=== PATIENT | female | born 1965 | race African-American/Black ===

== ENCOUNTER 2024-05-21 13:35 | Emergency (ER) | payer MEDICAID, OTHER ==
[~2024-05-21] VITALS: Ht 167.6 cm; Wt 73.0 kg
[2024-05-21 13:38] VITALS: O2SAT 98
[2024-05-21 14:17] LABS: BASOPHILS % 3.4 % (0.0-2.0); DIFFERENTIAL COMMENT 0; EOSINOPHILS % 4.6 % (0.0-5.0); HEMATOCRIT. 30.3 % (36.0-48.0); LYMPHOCYTES % 35.7 % (20.0-50.0); MEAN CORPUSCULAR HEMOGLOBIN 33.4 pg (28.0-32.0); MEAN CORPUSCULAR VOLUME 101.2 fL (81.0-99.0); MEAN PLATELET VOLUME 8.2 fl (7.4-10.4); MONOCYTES % 9.6 % (2.0-8.0); NEUTROPHILS % 46.7 % (40.0-76.0); PLATELET 287 x1000/uL (130-400); RED BLOOD CELL COUNT 2.99 mill/uL (4.2-5.4); RED CELL DISTRIBUTION WIDTH 15.3 % (11.6-14.6); WHITE BLOOD COUNT 4.3 x1000/uL (4.5-11.0)
[2024-05-21 14:29] LABS: CARBON DIOXIDE 24 mEq/L (21-32); CHLORIDE 107 mEq/L (98-107); POTASSIUM 3.3 mEq/L (3.5-5.1); SODIUM 145 mEq/L (136-145)
[2024-05-21 14:30] LABS: CALCIUM 10.1 mg/dL (8.7-10.4); D-DIMER 1.12 mg/L FEU (<0.50); PARTIAL THROMBOPLASTIN TIME 25.4 sec (23.4-31.0); PROTHROMBIN TIME 10.4 sec (9.6-11.0)
[2024-05-21 14:35] LABS: CREATININE 0.9 mg/dL (0.6-1.0); GLUCOSE 60 mg/dL (70-105); TROPONIN I HIGH SENSITIVITY 8 ng/L (3.0-34); UREA NITROGEN BLOOD 13 mg/dL (9-23)
[2024-05-21] MEDS: POTASSIUM CHLORIDE 20MEQ/PACKET PO ONE (15:59)
[2024-05-21 16:31] LABS: TROPONIN I HIGH SENSITIVITY 8 ng/L (3.0-34)
[2024-05-21] MEDS ORDERED: AMOX1TAB16 MT (16:47)
[2024-05-21 17:17] VITALS: BP 153/110; PULSE 93; RESP 14; TEMP 36.8; O2SAT 100
[2024-05-22] MEDS ORDERED: IOHEXOL-350 100 ML BOTTLE ONE (01:21)
== END 2024-05-21 17:30 | disposition home or self-care (01) ==
LOC: ER 13:35
DX: R07.89 Other chest pain (principal); I83.92 Asymptomatic varicose veins of left lower extremity; K04.7 Periapical abscess without sinus; F41.9 Anxiety disorder, unspecified; J45.909 Unspecified asthma, uncomplicated; Z79.899 Other long term (current) drug therapy
CPT/HCPCS: 99285; 71275; 93971; 71045; 80048; 83880; 85025; 85379; 85610; 85730; 84484; 36415; 93005; Q9967

== ENCOUNTER 2024-07-15 17:19 | Emergency (ER) | payer OTHER ==
[~2024-07-15] VITALS: Ht 162.6 cm; Wt 50.0 kg
[~2024-07-15 17:19] MED LIST: AMOX1TAB16 MT
[2024-07-15 17:35] VITALS: O2SAT 99
[2024-07-15 18:15] LABS: BASOPHILS % 1.4 % (0.0-2.0); DIFFERENTIAL COMMENT 0; EOSINOPHILS % 1.1 % (0.0-5.0); HEMATOCRIT. 33.1 % (36.0-48.0); LYMPHOCYTES % 15.4 % (20.0-50.0); MEAN CORPUSCULAR HEMOGLOBIN 33.7 pg (28.0-32.0); MEAN CORPUSCULAR HGB CONC 33.4 g/dL (31.0-37.0); MEAN PLATELET VOLUME 8.7 fl (7.4-10.4); MONOCYTES % 8.2 % (2.0-8.0); NEUTROPHILS % 73.9 % (40.0-76.0); PLATELET 210 x1000/uL (130-400); RED BLOOD CELL COUNT 3.27 mill/uL (4.2-5.4); RED CELL DISTRIBUTION WIDTH 14.1 % (11.6-14.6); WHITE BLOOD COUNT 4.8 x1000/uL (4.5-11.0)
[2024-07-15 18:25] LABS: CARBON DIOXIDE 15 mEq/L (21-32); CHLORIDE 96 mEq/L (98-107); POTASSIUM 4.1 mEq/L (3.5-5.1); SODIUM 131 mEq/L (136-145)
[2024-07-15 18:26] LABS: CALCIUM 9.6 mg/dL (8.7-10.4)
[2024-07-15 18:31] LABS: GLUCOSE 81 mg/dL (70-105); TROPONIN I HIGH SENSITIVITY 6 ng/L (3.0-34); UREA NITROGEN BLOOD 19 mg/dL (9-23)
[2024-07-15 18:32] LABS: ALANINE AMINOTRANSFERASE 12 IU/L (10-49)
[2024-07-15 18:33] LABS: ALBUMIN 4.8 g/dL (3.2-4.8); ASPARTATE AMINOTRANSFERASE 30 IU/L (<34); BILIRUBIN DIRECT 0.2 mg/dL (<=3.0); BILIRUBIN TOTAL 0.7 mg/dL (0.1-1.0); PROTEIN TOTAL 7.9 g/dL (6.0-8.3)
[2024-07-15 18:35] LABS: CREATININE 1.4 mg/dL (0.6-1.0)
[2024-07-15 20:58] LABS: TROPONIN I HIGH SENSITIVITY 6 ng/L (3.0-34)
[2024-07-15] MEDS ORDERED: IPRATROPIUM/ALBUTEROL 0.5-3(2.5)MG/3ML NEB NEB PRN (21:45)
[2024-07-15] MEDS ORDERED: ZOLPIDEM TARTRATE 5MG TABLET PO PRN (21:45)
[2024-07-15] MEDS ORDERED: HYDROCODONE/ACETAMINOPHEN 5/325MG TABLET PO PRN (21:45)
[2024-07-15] MEDS ORDERED: MORPHINE SULFATE 2 MG/ML INJ (NOT FOR IM USE) IV PRN (21:45)
[2024-07-15] MEDS ORDERED: CLONIDINE 0.1MG TABLET PO PRN (21:45)
[2024-07-15] MEDS ORDERED: ACETAMINOPHEN 325MG TABLET PO PRN (21:45)
[2024-07-15] MEDS ORDERED: SODIUM CHLORIDE 0.9% 1,000 ML IV SCH (21:45)
[2024-07-15] MEDS ORDERED: ONDANSETRON HCL 4MG/2ML INJ IV PRN (21:45)
[2024-07-15] MEDS ORDERED: NALOXONE HCL 0.4MG/ML VIAL IV PRN (22:00)
[2024-07-15] MEDS ORDERED: ENOXAPARIN 40MG/0.4ML SYR SUBCUT SCH (22:00)
[2024-07-15 22:55] VITALS: BP 143/98; PULSE 93; RESP 12; TEMP 36.9; O2SAT 100
[2024-07-16] MEDS ORDERED: PANTOPRAZOLE SODIUM 40 MG/VIAL IV SCH (09:00)
== END 2024-07-15 23:31 | disposition short-term general hospital (02) ==
LOC: ER 17:19
DX: R07.89 Other chest pain (principal); J45.909 Unspecified asthma, uncomplicated; N17.9 Acute kidney failure, unspecified
CPT/HCPCS: 80076; 80048; 83880; 83690; 85025; 84484; 36415; 71045; 93970; 93005; 99285; Z7610 ×3; A4606